=== PATIENT | female | born 1955 | race Caucasian/White ===

== ENCOUNTER → 2016-07-05 | Outpatient (CLI) | payer BC, OTHER ==
--- NOTE | 2016-07-10 09:10 | SLEEPCENT ---
DATE OF PROCEDURE: 07/05/2016 ORDERED BY: LUC Egan Nocturnal polysomnography was performed for re-titration of pressure therapy in this patient with obstructive sleep apnea syndrome. For testing, a [employer] and [employer] Simplus full face mask of small size was used. An initial pressure of inspiratory 12 over expiratory 8 was utilized and the lights were extinguished. 7 hours and 28 minutes of data were reviewed. There were 343 minutes of sleep identified. Sleep latency was short at 5 minutes. Rapid eye movement (REM) latency mildly prolonged at 114 minutes. Sleep architecture improved with optimal pressure therapy. There were 3 REM periods identified. Overall sleep efficiency was 78.3%. The patient's electrocardiogram (EKG) showed a sinus rhythm with an average heart rate of 62 beats per minute. Electroencephalogram (EEG) showed reasonably normal waveforms for awake and sleep. Persistence of respiratory events prompted an increase in pressure. The patient's sleep was best on an inspiratory pressure of 16 over expiratory pressure of 12 with which pressure she slept through REM without respiratory event or oxygen desaturation in the supine posture. There was minimal limb activity and remaining measures of sleep physiology were normal. IMPRESSION: Obstructive sleep apnea syndrome (G47.33). RECOMMENDATION: Nightly use of bilevel pressure therapy inspiratory pressure 16, expiratory pressure 12.
== END ==
LOC: M SLEEP 20:08
PROVIDERS: ATTEND Nurse Practitioner Adult Health
DX: G47.33 Obstructive sleep apnea (adult) (pediatric) (principal)

== ENCOUNTER → 2017-10-22 | Outpatient (REF) | LOC: M SMT 12:59 | DX: Z02.71 Encounter for disability determination (principal) ==

== ENCOUNTER → 2020-11-09 | Outpatient (CLI) | payer MEDICARE, BC, OTHER | LOC: M SLEEP 20:00 | PROVIDERS: ATTEND Internal Medicine Pulmonary Disease | DX: G47.33 Obstructive sleep apnea (adult) (pediatric) (principal) ==